=== PATIENT | female | born 1990 | race Two or more races ===

== ENCOUNTER 2025-01-28 08:20 | Outpatient (CLI) | payer OTHER | END 2025-01-28 08:26 | disposition home or self-care (01) | LOC: SONOGRAMA 08:20 | PROVIDERS: ATTEND Physical Medicine & Rehabilitation | DX: G56.02 Carpal tunnel syndrome, left upper limb (principal); M06.4 Inflammatory polyarthropathy ==

== ENCOUNTER 2025-03-16 07:15 | Outpatient (CLI) | payer OTHER | END 2025-03-16 07:19 | disposition home or self-care (01) | LOC: SONOGRAMA 07:15 | PROVIDERS: ATTEND Physical Medicine & Rehabilitation | DX: M77.11 Lateral epicondylitis, right elbow (principal); M77.12 Lateral epicondylitis, left elbow ==